=== PATIENT | female | born 2000 | race African-American/Black ===

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

== ENCOUNTER 2019-01-19 14:58 | Emergency (ER) | payer OTHER ==
--- OUTSIDE RECORDS SUMMARY | 2019-01-19 15:06 | XMS REPORT ---
:2000 Author Organization [facility] Care Team Providers Name Role Phone Guera Shah Primary Care Physician Unavailable Allergies, Adverse Reactions, Alerts Allergy Code CodeSystem Reaction Severity Criticality Status Start Substance Date Moderate Medications Medication Medication Medication Start Stop Route Dose Status Fill Code CodeSystem Date Date Instructions prazosin 462570 RxNorm 2019- oral 1 mg 1 completed 1 capsule 24 capsule at bedtime at for 30 day(s) bedtime hydroxyzine 380637 RxNorm 2019- oral 25 mg 1 completed Take 1 tablet HCl 07-0428 tablet four times a four day as needed times a for 30 day(s) day fluoxetine 130120 RxNorm 2019- oral 20 mg 1 completed Take 1 07-04-29 capsule capsule every every morning morning for 7 day(s) fluoxetine 944470 RxNorm 2019- oral 20 mg 2 active 2 capsule 07-18-10 capsule every morning every for 30 morning day(s) fluoxetine 293597 RxNorm 2019- oral 40 mg completed for 30 07-04-29 capsule day(s) buspirone 889374 RxNorm 2019- oral 10 mg completed for 30 08-30 08-24 tablet day(s) clonidine HCl 490254 RxNorm 2019- oral 0.1 mg 1 active Take 1 tablet 10-01-25 tablet four times a four day for 30 times a day(s) day fluoxetine 929908 RxNorm 2019- oral 20 mg 1 completed Take 1 07-04-05 capsule capsule every every morning morning for 7 day(s) alprazolam 478075 RxNorm 2019- oral 0.25 mg completed for 30 08-30 08-24 tablet day(s) fluoxetine 676095 RxNorm 2019- oral 40 mg completed for 30 07-04-12 capsule day(s) Problems Problem Name Code CodeSystem Alternate Alternate Start End Status Narrative Code CodeSystem Date Date 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, unspecified Depressive 62280598 SNOMED-CT Active episode, 4-05 unspecified Panic 69057243 SNOMED-CT Active disorder 7-25 Unspecified 57368252 SNOMED-CT Active anxiety 5-30 disorder Relevant diagnostic tests/laboratory data Narrative No Information Procedures Procedure Code CodeSystem Target Date of Status Service Device Device Device Name Site Procedure Delivery Code Name UID Location Psychotherap [id number] SNOMED-CT () 2018-05-25 complete Mental y, 43 04 d Health- minutes with [place] patient [address], [id number] [phone] Psychotherap [id number] SNOMED-CT () 2018-12-20 complete Mental y, 45 04 d Health- minutes with [place] patient [address], [id number] [phone] Psychotherap [id number] SNOMED-CT () 2018-11-20 complete Mental y, 45 04 d Health- minutes with [place] patient [address], [id number] [phone] Psychotherap [id number] SNOMED-CT () 2018-09-03 complete Mental y, 43 04 d Health- minutes with [place] patient [address], [id number] [phone] Office or 038707 SNOMED-CT () 2018-08-30 complete Mental other 7 d Health- outpatient [place] visit for [address] established [id number] patient, [phone] which requires at least 2 of these 3 live components: An expanded problem focused history; An expanded problem focused examination; Medical decision making of low Office or 380165 SNOMED-CT () 2018-10-01 complete Mental other 7 d Health- outpatient [place] visit for [address], established [id number] patient, [phone] which requires at least 2 of these 3 live components: An expanded problem focused history; An expanded problem focused examination; Medical decision making of low Office or 910907 SNOMED-CT () 2018-10-29 complete Mental other 7 d Health- outpatient [place] visit for [address], established [id number] patient, [phone] which requires at least 2 of these 3 live components: An expanded problem focused history; An expanded problem focused examination; Medical decision making of low Office or 282702 SNOMED-CT () 2018-12-06 complete Mental other 7 d Health- outpatient [place] visit for [address], established [id number] patient, [phone] which requires at least 2 of these 3 live components: An expanded problem focused history; An expanded problem focused examination; Medical decision making of [place] Office or 166133 SNOMED-CT () 2018-07-18 complete Mental other 6 d Health- outpatient [place] visit for [address], established [id number] patient, [phone] which requires at least 2 of these 3 live components: A problem focused history; A problem focused examination; Straightforw david medical decision making. Counselin SNOMED-CT () 2018-12-26 complete Mental d [address], [id number] [phone] SNOMED-CT () 2018-07-04 complete Mental d Health[address], [id number] [phone] Encounters/Encounter Diagnoses Encounter Name Encounter Diagnosis Diagnosis Diagnosis Date of Service Code Code Name CodeSystem Diagnosis Delivery Location Psychotherapy [id number] Panic SNOMED-CT 2018-12-26 Behavioral Individual 30 disorder Health [facility] [address] [place] [address], [phone] Vital Signs No Information Social History Element Description Description Start End Code CodeSystem AdditionalInfo Date Date SexAssignedAtBirth Female F AdministrativeGender 09-02 Hospital Discharge Instructions Reason For Referral Medical Equipment FDA Assessments
--- OUTSIDE RECORDS SUMMARY | 2019-01-19 15:06 | XMS REPORT ---
:2000 Author Name Guera Shah Address [address] [address] Care Team Providers Name Role Phone Guera Shah Unavailable Unavailable Meghana Patino Unavailable Unavailable Allergies, Adverse Reactions, Alerts Allergy Code CodeSystem Reaction Severity Status Substance RxNorm Medications Medication Medication Medication Start Route Dose Status Fill Code CodeSystem Date Instructions RxNorm NoCurrentDosage No NoCurrentFrequency Longer Active fluoxetine RxNorm 2019-0 oral 20 mg 1 capsule No Take 1 5-29 every morning Longer capsule Active every morning for 7 day(s) fluoxetine RxNorm 2019-0 oral 40 mg capsule No for 30 5-29 Longer day(s) Active hydroxyzine RxNorm 2019-0 oral 25 mg 1 tablet No Take 1 tablet HCl 5-29 four times a day Longer four times a Active day as needed for 30 day(s) fluoxetine RxNorm 2019-0 oral 40 mg capsule No for 30 5-29 Longer day(s) Active fluoxetine RxNorm 2019-0 oral 20 mg 1 capsule No Take 1 5-29 every morning Longer capsule Active every morning for 7 day(s) fluoxetine RxNorm 2019-0 oral 20 mg 2 capsule Active 2 capsule 6-12 every morning every morning for 30 day(s) prazosin RxNorm oral 1 mg 1 capsule at No 1 capsule bedtime Longer at bedtime Active for 30 day(s) alprazolam RxNorm 2019-0 oral 0.25 mg tablet No for 30 7-25 Longer day(s) Active buspirone RxNorm 2019-0 oral 10 mg tablet No for 30 7-25 Longer day(s) Active clonidine RxNorm 2019-0 oral 0.1 mg 1 tablet Active Take 1 tablet HCl 8-26 four times a day four times a day for 30 day(s) Hospital Discharge Medications Medication Direction Start Date Status Indications Fill Instuctions No Discharge Medication Problems Problem Name Code CodeSystem Start Date End Date Status SNOMED-CT 2018-04-27 Active SNOMED-CT 2018-05-11 Active SNOMED-CT 2018-07-05 Active SNOMED-CT 2018-08-30 Active Laboratory Values/Results Test Test Code Code System Actual Result Date LOINC Procedures Procedure Name Code CodeSystem Target Site Date of Procedure SNOMED-CT () 2018-05-25 SNOMED-CT () 2018-07-04 SNOMED-CT () 2018-07-18 SNOMED-CT () 2018-09-03 SNOMED-CT () 2018-08-30 SNOMED-CT () 2018-10-01 SNOMED-CT () 2018-10-29 Encounter Diagnosis Code CodeSystem Description Date Finding Finding Code Status 14768 CPT Established 2018-10-08 - SNOMED-CT Active patient 15-29 3 minutes Vital Signs Vitals Date Value Immunizations Vaccine Name Vaccine Code CodeSystem Date Status Social History Element Description Start Date End Date Code CodeSystem Description SNOMED-CT Hospital Discharge Instructions Reason For Referral
--- OUTSIDE RECORDS SUMMARY | 2019-01-19 15:06 | XMS REPORT ---
:2000 Author Organization [facility] Care Team Providers Name Role Phone Guera Shah Primary Care Physician Unavailable Allergies, Adverse Reactions, Alerts Allergy Code CodeSystem Reaction Severity Criticality Status Start Substance Date Moderate Medications Medication Medication Medication Start Stop Route Dose Status Fill Code CodeSystem Date Date Instructions clonidine HCl 674498 RxNorm 2019- oral 0.1 mg 1 active Take 1 tablet 10-01- tablet four times a four day for 30 times a day(s) day hydroxyzine 507682 RxNorm 2019- oral 25 mg 1 completed Take 1 tablet HCl 07-04- tablet four times a four day as needed times a for 30 day(s) day fluoxetine 120542 RxNorm 2019- oral 40 mg completed for 30 07-04-29 capsule day(s) fluoxetine 809705 RxNorm 2019- oral 20 mg 1 completed Take 1 07-04 06-05 capsule capsule every every morning morning for 7 day(s) prazosin 723503 RxNorm 2019- oral 1 mg 1 completed 1 capsule -24 capsule at bedtime at for 30 day(s) bedtime fluoxetine 013475 RxNorm 2019- oral 20 mg 1 completed Take 1 07-04-29 capsule capsule every every morning morning for 7 day(s) alprazolam 447474 RxNorm 2019- oral 0.25 mg completed for 30 08-30 08-24 tablet day(s) buspirone 106362 RxNorm 2019- oral 10 mg completed for 30 - 08-24 tablet day(s) fluoxetine 304825 RxNorm 2019- oral 20 mg 2 active 2 capsule 07-18-10 capsule every morning every for 30 morning day(s) fluoxetine 092690 RxNorm 2019- oral 40 mg completed for 30 07-04-12 capsule day(s) Problems Problem Name Code CodeSystem Alternate Alternate Start End Status Narrative Code CodeSystem Date Date Unspecified 44971199 SNOMED-CT Active anxiety 5-30 disorder Panic 20017345 SNOMED-CT Active disorder 7-25 Depressive 21369351 SNOMED-CT Active episode, 4-05 unspecified Post-traumat 94148439 SNOMED-CT Active ic stress 3-22 disorder, unspecified Relevant diagnostic tests/laboratory data Narrative No Information Procedures Procedure Code CodeSystem Target Date of Status Service Device Device Device Name Site Procedure Delivery Code Name UID Location Psychotherap 018320 SNOMED-CT () 2018-11-20 complete Mental y, 45 04 d Health- minutes with [place] patient [address], [phone] Psychotherap [id number] SNOMED-CT () 2018-09-03 complete Mental y, 45 04 d Health- minutes with [place] patient [address], [phone] Psychotherap 183157 SNOMED-CT () 2018-05-25 complete Mental y, 43 04 d Health- minutes with [place] patient [address], [phone] Office or [id number] SNOMED-CT () 2018-08-30 complete Mental other 7 d Health- outpatient [place] visit for [address] [id number] patient, [phone] which requires at least 2 of these 3 live components: An expanded problem focused history; An expanded problem focused examination; Medical decision making of low Office or 064955 SNOMED-CT () 2018-10-01 complete Mental other 7 d Health- outpatient [place] visit for [address] [phone] patient, [phone] which requires at least 2 of these 3 live components: An expanded problem focused history; An expanded problem focused examination; Medical decision making of low Office or 650138 SNOMED-CT () 2018-10-29 complete Mental other 7 d Health- outpatient [place] visit for [address], established [id number] patient, [phone] which requires at least 2 of these 3 live components: An expanded problem focused history; An expanded problem focused examination; Medical decision making of [facility] Office or 932898 SNOMED-CT () 2018-12-06 complete Mental other 7 d Health- outpatient [place] visit for [address], established [id number] patient, [phone] which requires at least 2 of these 3 live components: An expanded problem focused history; An expanded problem focused examination; Medical decision making of [facility] Office or 193304 SNOMED-CT () 2018-07-18 complete Mental other 6 d Health- outpatient [place] visit for [address], [facility] [phone] patient, [phone] which requires at least 2 of these 3 live components: A problem focused history; A problem focused examination; Straightforw david medical decision making. Counselin SNOMED-CT () 2018-07-04 complete Mental d Health- [place] [address], [phone] Encounters/Encounter Diagnoses Encounter Name Encounter Diagnosis Diagnosis Diagnosis Date of Service Code Code Name CodeSystem Diagnosis Delivery Location Psychotherapy 86872 [id number] Panic SNOMED-CT 2018-12-20 Behavioral Individual 30 disorder Health [facility] , , , Vital Signs No Information Social History Element Description Description Start End Code CodeSystem AdditionalInfo Date Date SexAssignedAtBirth Female 2000- F AdministrativeGender 09-02 Hospital Discharge Instructions Reason For Referral Medical Equipment FDA Assessments
--- OUTSIDE RECORDS SUMMARY | 2019-01-19 15:06 | XMS REPORT ---
:2000 Author Organization [facility] Care Team Providers Name Role Phone Guera Shah Primary Care Physician Unavailable Allergies, Adverse Reactions, Alerts Allergy Code CodeSystem Reaction Severity Criticality Status Start Substance Date Moderate Medications Medication Medication Medication Start Stop Route Dose Status Fill Code CodeSystem Date Date Instructions alprazolam 556558 RxNorm 2019- oral 0.25 mg completed for 30 08-30-24 tablet day(s) fluoxetine 642180 RxNorm 2019- oral 20 mg 1 completed Take 1 07-04- capsule capsule every every morning morning for 7 day(s) fluoxetine 661005 RxNorm 2019- oral 20 mg 1 completed Take 1 07-04 06-05 capsule capsule every every morning morning for 7 day(s) buspirone 139383 RxNorm 2019- oral 10 mg completed for 30 08-30 08-24 tablet day(s) clonidine HCl 526995 RxNorm 2019- oral 0.1 mg 1 active Take 1 tablet 10-01-25 tablet four times a four day for 30 times a day(s) day hydroxyzine 139249 RxNorm 2019- oral 25 mg 1 completed Take 1 tablet HCl 07-04-28 tablet four times a four day as needed times a for 30 day(s) day prazosin 936942 RxNorm 2019- oral 1 mg 1 completed 1 capsule -24 capsule at bedtime at for 30 day(s) bedtime fluoxetine 620529 RxNorm 2019- oral 40 mg completed for 30 07-04 06-12 capsule day(s) fluoxetine 415937 RxNorm 2019- oral 20 mg 2 active 2 capsule 07-18 09-10 capsule every morning every for 30 morning day(s) fluoxetine 077788 RxNorm 2019- oral 40 mg completed for 30 07-04-29 capsule day(s) Problems Problem Name Code CodeSystem Alternate Alternate Start End Status Narrative Code CodeSystem Date Date Unspecified [id number] SNOMED-CT Active anxiety 5-30 disorder Panic [id number] SNOMED-CT Active disorder 7-25 Depressive [id number] SNOMED-CT Active episode, 4-05 unspecified Post-traumat [id number] SNOMED-CT Active ic stress 3-22 disorder, unspecified Relevant diagnostic tests/laboratory data Narrative No Information Procedures Procedure Code CodeSystem Target Date of Status Service Device Device Device Name Site Procedure Delivery Code Name UID Location Psychotherap [id number] SNOMED-CT () 2018-11-20 complete Mental y, 45 04 d Health- minutes with [facility] patient [address], [id number] Psychotherap [id number] SNOMED-CT () 2018-09-03 complete Mental y, 45 04 d Health- minutes with [facility] patient [address], [id number] Psychotherap [id number] SNOMED-CT () 2018-05-25 complete Mental y, 45 04 d Health- minutes with [facility] patient [address], [id number] Psychotherap [id number] SNOMED-CT () 2018-12-20 complete Mental y, 45 04 d Health- minutes with [facility] patient [address], [id number] Office or [id number] SNOMED-CT () 2018-08-30 complete Mental other 7 d Health- outpatient [facility] visit for [address] established [id number] patient, [id number] which requires at least 2 of these 3 live components: An expanded problem focused history; An expanded problem focused examination; Medical decision making of low Office or [id number] SNOMED-CT () 2018-10-01 complete Mental other 7 d Health- outpatient [facility] visit for [address], established [id number] patient, [id number] which requires at least 2 of these 3 live components: An expanded problem focused history; An expanded problem focused examination; Medical decision making of low Office or [id number] SNOMED-CT () 2018-10-29 complete Mental other 7 d Health- outpatient [facility] visit for [address], established [id number] patient, [id number] which requires at least 2 of these 3 live components: An expanded problem focused history; An expanded problem focused examination; Medical decision making of low Office or [id number] SNOMED-CT () 2018-12-06 complete Mental other 7 d Health- outpatient [facility] visit for [address], established [id number] patient, [id number] which requires at least 2 of these 3 live components: An expanded problem focused history; An expanded problem focused examination; Medical decision making of low Office or [id number] SNOMED-CT () 2018-07-18 complete Mental other 6 d Health- outpatient [facility] visit for [address], established [id number] patient, [id number] which requires at least 2 of these 3 live components: A problem focused history; A problem focused examination; Straightforw david medical decision making. Counselin SNOMED-CT () 2018-07-04 complete Mental d Health- [facility] [address], [id number] [id number] Encounters/Encounter Diagnoses Encounter Name Encounter Diagnosis Diagnosis Diagnosis Date of Service Code Code Name CodeSystem Diagnosis Delivery Location Psychotherapy - [id number] Panic SNOMED-CT 2018-12-26 Behavioral Individual 30 disorder [facility] , , , Vital Signs No Information Social History Element Description Description Start End Code CodeSystem AdditionalInfo Date Date SexAssignedAtBirth Female F AdministrativeGender 09-02 Hospital Discharge Instructions Reason For Referral Medical Equipment FDA Assessments
[2019-01-19] MEDS ORDERED: Ibuprofen TAB* 400 MG PO ONE (15:21)
--- NOTE | 2019-01-19 15:26 | UC ---
Respiratory Complaint HPI - HPI Summary HPI Summary: patient has had sinus congestion for a few days, for past 2 days she has had pain with breathing, hurts to take deep breath, denies SOB or wheezing no cough, no weakness or dizziness, no calf pain tried only Tylenol for pain with little relief - History of Current Complaint Chief Complaint: UCChestPain Stated Complaint: CHEST PAIN Time Seen by Provider: 01/19/19 15:04 Hx Obtained From: Patient Hx Last Menstrual Period: 1 week ago ?: No Onset/Duration: Gradual Onset Timing: Constant Severity Initially: Mild Severity Currently: Moderate Pain Intensity: 6 Aggravating Factors: Deep Breaths, Recumbent Position Alleviating Factors: Spontaneous Resolution Associated Signs And Symptoms: Positive: Nasal Congestion, Sinus Discomfort. Negative: Dyspnea, Fever, Chills, Wheezing, Hemoptysis, Dizziness, Calf Pain, Calf Swelling - Allergies/Home Medications Allergies/Adverse Reactions: Allergies Allergy/AdvReac Type Severity Reaction Status Date / Time No Known Allergies Allergy Verified 01/19/19 15:14 Home Medications: Home Medications FLUoxetine CAP* [Prozac CAP*] 40 mg PO DAILY 01/19/19 [History Confirmed ] busPIRone TAB* [Buspar TAB*] 01/19/19 [History] cloNIDine TAB* [Catapres 0.1 MG TAB*] 01/19/19 [History] PMH/Surg Hx/FS Hx/Imm Hx Previously Healthy: Yes Psychological History: Anxiety, Depression - Surgical History Surgical History: Yes Surgery Procedure, Year, and Place: Cholecystectomy. tonsillectomy - Family History Known Family History: Positive: Cardiac Disease, Hypertension, Diabetes Family History: Not much is known about the paternal side. He has alcohol and drug problems. Her mother had cervical cancer. Her maternal grandmother had ovarian cancer, drug abuse, and thyroid disease. - Social History Occupation: Unemployed Lives: With Family Alcohol Use: None Substance Use Type: None Substance Use Comment - Amount & Last Used: 3-4 days ago per pt Smoking Status (MU): Current Every Day Smoker Amount Used/How Often: "rolled" cigarettes Cessation Counseling: Patient Advised to Stop - Immunization History Most Recent Influenza Vaccination: november 2017 Most Recent Pneumonia Vaccination: n/a Vaccination Up to Date: Yes Review of Systems All Other Systems Reviewed And Are Negative: Yes Constitutional: Positive: Negative Skin: Positive: Negative. Negative: Rash Respiratory: Negative: Shortness Of Breath, Cough Cardiovascular: Positive: Chest Pain - sharp in nature Gastrointestinal: Positive: Negative. Negative: Abdominal Pain Musculoskeletal: Positive: Negative Neurological: Positive: Negative. Negative: Headache, Weakness Psychological: Positive: Negative Is Patient Immunocompromised?: No Physical Exam Triage Information Reviewed: Yes Appearance: Well-Appearing, No Pain Distress, Well-Nourished Vital Signs: Initial Vital Signs Temp 97.3 F 01/19/19 15:10 Pulse 62 01/19/19 15:10 Resp 6 01/19/19 15:10 BP 121/68 01/19/19 15:10 Pulse Ox 98 01/19/19 15:10 Vital Signs Reviewed: Yes Eye Exam: Normal Eyes: Positive: Conjunctiva Clear ENT Exam: Normal ENT: Positive: Pharynx normal, Nasal congestion, TMs normal, Sinus tenderness. Negative: Tonsillar swelling, Tonsillar exudate Neck exam: Normal Neck: Positive: Supple, Nontender, No Lymphadenopathy Respiratory Exam: Normal Respiratory: Positive: Chest non-tender, Lungs clear Cardiovascular Exam: Normal Cardiovascular: Positive: RRR, Brisk Capillary Refill Musculoskeletal Exam: Normal Neurological Exam: Normal Neurological: Positive: Alert Psychological Exam: Normal Skin Exam: Normal Diagnostics - Radiology No standard instances Radiology Interpretation Completed By: Radiologist - normal CXR Re-Evaluation - Re-Evaluation First Eval Re-Evaluation Time: 16:00 Change: Unchanged - continues to rest quietly, denies c/o at this time Respiratory Course/Dx - Differential Dx/Diagnosis Differential Diagnosis/HQI/PQRI: Asthma, Bronchitis, Influenza, Lower Resp Infection, Pulmonary Embolism, Sinusitis Provider Diagnosis: Upper respiratory infection Discharge ED - Sign-Out/Discharge Documenting (check all that apply): Patient Departure All imaging exams completed and their final reports reviewed: Yes - Discharge Plan Condition: Good Disposition: HOME Prescriptions: Azithromyxin FRANKIE (NF) [Z-Frankie (Zithromax) 250 mg tabs #6] 2 tab PO .TODAY, THEN 1 DAILY #6 tab Patient Education Materials: Upper Respiratory Infection (ED) Referrals: Arian Link [facility] [Primary Care Provider] - 3 Days (if no better) Additional Instructions: drink plenty of fluids and rest use Tylenol as directed for pain or fever use zithromax as prescribed - Billing Disposition and Condition Condition: GOOD Disposition: Home - Attestation Statements Provider Attestation: Per institutional requirements, I have reviewed the chart, however, I was not consulted specifically or made aware of this patient by the midlevel provider. I did not personally evaluate, interact with , or disposition this patient.
[2019-01-19 16:27] VITALS: BP 122/54
== END 2019-01-19 16:22 | disposition home or self-care (01) ==
LOC: UCEAST 14:58
DX: J06.9 Acute upper respiratory infection, unspecified (principal); F41.9 Anxiety disorder, unspecified; F32.9 Major depressive disorder, single episode, unspecified; F17.210 Nicotine dependence, cigarettes, uncomplicated
CPT/HCPCS: 71046; 93005; 99212; A9270-GY; G0463

== ENCOUNTER 2020-07-07 12:56 | Inpatient (IN) ==
[2020-07-07] MEDS ORDERED: Buffered Lidocaine 1% SYRIN 1 ml INTRADERM ONE (13:23)
[2020-07-07] MEDS ORDERED: Lactated Ringers 1000 ml BAG 1,000 ML IV ONE (13:23)
[2020-07-07] MEDS ORDERED: Lactated Ringers 1000 ml BAG 1,000 ML IV SCH (14:00)
[2020-07-07 14:25] LABS: Urine Benzodiazepine Screen None Detected (None Detect); Urine Cannabinoids Screen Presumptive Positive (None Detect); Urine Opiates Screen None Detected (None Detect)
[2020-07-07 15:16] LABS: ABS Eosinophils 0.1 10^3/ul (0-0.6); ABS Lymphocytes 2.5 10^3/ul (1.0-4.8); Eosinophil % 0.6 %; Hematocrit 35 % (35-47); Hemoglobin 11.4 g/dL (12.0-16.0); Lymphocyte % 18.6 %; Mean Corpuscular HGB Conc 33 g/dL (31-36); Mean Corpuscular Hemoglobin 28 pg (27-31); Mean Corpuscular Volume 84 fL (80-97); Mean Platelet Volume 9.8 fL (7.4-10.4); Platelet Count 211 10^3/uL (150-450); Red Cell Distribution Width 14 % (10-15); White Blood Count 13.6 10^3/uL (3.5-10.8)
[2020-07-07 16:34] LABS: Albumin 3.6 g/dL (3.2-5.2); Calcium 8.9 mg/dL (8.6-10.3); EGFR African American 180.1 (>60); EGFR Non-African American 148.9 (>60); Globulin 3.5 g/dL (2-4); Potassium 3.9 mmol/L (3.5-5.0); Total Bilirubin 0.5 mg/dL (0.2-1.0); Total Protein 7.1 g/dL (6.4-8.9); Uric Acid 4.5 mg/dL (2.3-6.6)
[2020-07-07] MEDS ORDERED: Oxytocin in LR 20 UNITS/1,000 ML BAG IVPB SCH (23:00)
[2020-07-08] MEDS ORDERED: OBEPIDURAL 250 ML EPIDURAL ONE (02:51)
[2020-07-08] MEDS ORDERED: Lactated Ringers 1000 ml BAG 1,000 ML IV ONE (03:00)
[2020-07-08] MEDS ORDERED: Sodium Citrate/Citric Acid LIQ 15 ML UDC PO PRN (03:00)
[2020-07-08] MEDS ORDERED: Phenylephrine 40 mcg/mL 10mL (400mcg) SYRINGE IV PUSH PRN ×2 (03:00)
[2020-07-08] MEDS ORDERED: Lactated Ringers 1000 ml BAG 1,000 ML IV SCH ×2 (03:00→09:00)
[2020-07-08] MEDS ORDERED: OBEPIDURAL 250 ML EPIDURAL SCH (03:00)
[2020-07-08] MEDS ORDERED: Bupivacaine 0.25% SDV PF 10 ML VIAL INJ ONE ×3 (03:30→07:34)
[2020-07-08] MEDS ORDERED: fentaNYL 100 mcg/2 ml 50 MCG/ML VIAL ONE (07:35)
[2020-07-08] MEDS ORDERED: Witch Hazel PAD JAR TOPICAL PRN (08:51)
[2020-07-08] MEDS ORDERED: Dibucaine 1% OINT 28.35 GM TUBE PR PRN (08:51)
[2020-07-08] MEDS ORDERED: Oxytocin in LR 20 UNITS/1,000 ML BAG IVPB SCH (09:00)
[2020-07-09 06:53] LABS: ABS Eosinophils 0.1 10^3/ul (0-0.6); ABS Lymphocytes 3.1 10^3/ul (1.0-4.8); ABS Monocytes 1.1 10^3/ul (0-0.8); ABS Neutrophils 10.2 10^3/ul (1.5-7.7); Hematocrit 29 % (35-47); Hemoglobin 9.6 g/dL (12.0-16.0); Lymphocyte % 21.3 %; Mean Corpuscular HGB Conc 34 g/dL (31-36); Mean Corpuscular Hemoglobin 28 pg (27-31); Mean Corpuscular Volume 84 fL (80-97); Mean Platelet Volume 9.5 fL (7.4-10.4); Platelet Count 172 10^3/uL (150-450); Red Blood Count 3.39 10^6 /uL (3.70-4.87); Red Cell Distribution Width 15 % (10-15); White Blood Count 14.5 10^3/uL (3.5-10.8)
[2020-07-09 08:15] VITALS: BP 134/74
== END 2020-07-09 13:23 | disposition home or self-care (01) | DRG 560 ==
LOC: MCHOBOUT 12:56 → MCHOB 13:21
PROVIDERS: ADMIT Midwife; ATTEND Midwife

== ENCOUNTER 2022-07-15 08:02 | Observation (INO) ==
[2022-07-15] MEDS ORDERED: Lactated Ringers 1000 ml BAG 1,000 ML IV ONE (08:53)
[2022-07-15] MEDS ORDERED: Promethazine INJ(RESTRICTED) 25 MG/ML 1 ml VIAL IV PRN (08:53)
[2022-07-15] MEDS ORDERED: Buffered Lidocaine 1% SYRIN 1 ml INTRADERM ONE (08:53)
[2022-07-15 09:00] VITALS: BP 129/68
[2022-07-15] MEDS ORDERED: Lactated Ringers 1000 ml BAG 1,000 ML IV SCH (09:00)
[2022-07-15 09:24] LABS: Urine Appearance Cloudy; Urine Bilirubin Negative (Negative); Urine Blood Negative (Negative); Urine Color Amber; Urine Glucose Negative (Negative); Urine Ketones Trace (Negative); Urine Nitrite Negative (Negative); Urine Protein 1+(30 mg/dL) (Negative); Urine Urobilinogen Positive (Negative)
[2022-07-15 09:28] LABS: Urine Bacteria Absent (Absent); Urine Red Blood Cell Absent (Absent); Urine Squamous Epithelial Cell Present (Absent); Urine White Blood Cell Trace(0-5/hpf) (Absent)
[2022-07-15] MEDS: miSOPROStol 100 mcg TAB PO SCH ×2 (09:40→14:51)
[2022-07-15 10:39] LABS: ABS Basophils 0.1 10^3/uL (0.0-0.1); ABS Eosinophils 0.2 10^3/uL (0.0-0.5); ABS Lymphocytes 2.5 10^3/uL (1.0-4.8); ABS Monocytes 0.8 10^3/uL (0.0-0.9); ABS Neutrophils 11.1 10^3/uL (1.5-7.6); Eosinophil % 1.2 %; Hematocrit 34.7 % (35-45); Hemoglobin 11.7 g/dL (11.5-14.3); Lymphocyte % 17.4 %; Mean Corpuscular Hemoglobin 28.1 pg (27-33); Mean Corpuscular Hgb Conc 33.6 g/dL (31-36); Mean Corpuscular Volume 83.5 fL (80-97); Mean Platelet Volume 9.1 fL (7.5-11.2); Platelet Count 253 10^3/uL (150-450); Red Blood Count 4.15 10^6/uL (3.63-4.92); Red Cell Distribution Width 14.5 % (12-17); White Blood Count 14.6 10^3/uL (3.8-11.8)
== END 2022-07-15 20:02 | disposition home or self-care (01) ==
LOC: MCHOBOUT 08:02 → MCHOB 08:57 → INTOOBSV 08:57
PROVIDERS: ADMIT Registered Nurse; ATTEND Registered Nurse

== ENCOUNTER 2022-07-17 05:07 | Inpatient (IN) ==
[2022-07-17] MEDS ORDERED: Buffered Lidocaine 1% SYRIN 1 ml INTRADERM ONE (06:33)
[2022-07-17] MEDS ORDERED: Lactated Ringers 1000 ml BAG 1,000 ML IV ONE (06:33)
[2022-07-17] MEDS ORDERED: Oxytocin in LR 20,000 MILLI.UNIT/1,000 ML BAG IV SCH ×2 (06:45→17:30)
[2022-07-17 07:59] LABS: ABS Basophils 0.1 10^3/uL (0.0-0.1); ABS Eosinophils 0.3 10^3/uL (0.0-0.5); ABS Lymphocytes 2.9 10^3/uL (1.0-4.8); ABS Monocytes 1.1 10^3/uL (0.0-0.9); ABS Neutrophils 13.1 10^3/uL (1.5-7.6); ABS Nucleated RBC 0.01 10^3/ul; Eosinophil % 1.9 %; Hematocrit 35.8 % (35-45); Hemoglobin 11.8 g/dL (11.5-14.3); Lymphocyte % 16.4 %; Mean Corpuscular Volume 84.8 fL (80-97); Mean Platelet Volume 8.9 fL (7.5-11.2); Nucleated Red Blood Cells % 0.1 /100 WBC (0.0-0.4); Platelet Count 259 10^3/uL (150-450); Red Blood Count 4.23 10^6/uL (3.63-4.92); Red Cell Distribution Width 14.2 % (12-17); White Blood Count 17.4 10^3/uL (3.8-11.8)
[2022-07-17] MEDS: Lactated Ringers 1000 ml BAG 1,000 ML IV SCH ×2 (08:00→17:57)
[2022-07-17 08:21] LABS: Urine Benzodiazepine Screen None Detected (None Detect); Urine Cannabinoids Screen Presumptive Positive (None Detect); Urine Opiates Screen None Detected (None Detect)
[2022-07-17] MEDS ORDERED: fentaNYL 100 mcg/2 ml 50 MCG/ML VIAL IV SLOW PU PRN (16:55)
[2022-07-17] MEDS ORDERED: Witch Hazel PAD JAR TOPICAL PRN (17:23)
[2022-07-17] MEDS ORDERED: Glycerin ADULT 2.4 gm SUPP PR PRN (17:23)
[2022-07-17] MEDS ORDERED: Dibucaine 1% OINT 28.35 GM TUBE PR PRN (17:23)
[2022-07-17] MEDS ORDERED: Lactated Ringers 1000 ml BAG 1,000 ML IV SCH (18:00)
[2022-07-17] MEDS ORDERED: Ondansetron 4 mg VIAL 2 MG/ML 2 ml VIAL IV PRN (19:31)
[2022-07-18 09:55] LABS: Hematocrit 31.7 % (35-45); Hemoglobin 10.6 g/dL (11.5-14.3); Mean Corpuscular Hemoglobin 27.8 pg (27-33); Mean Corpuscular Hgb Conc 33.5 g/dL (31-36); Mean Corpuscular Volume 82.9 fL (80-97); Red Blood Count 3.82 10^6/uL (3.63-4.92); Red Cell Distribution Width 14.4 % (12-17); White Blood Count 18.6 10^3/uL (3.8-11.8)
[2022-07-18 09:56] LABS: ABS Basophils 0.1 10^3/uL (0.0-0.1); ABS Eosinophils 0.1 10^3/uL (0.0-0.5); ABS Lymphocytes 2.7 10^3/uL (1.0-4.8); ABS Neutrophils 14.6 10^3/uL (1.5-7.6); ABS Nucleated RBC 0.01 10^3/ul; Eosinophil % 0.7 %; Lymphocyte % 14.4 %; Mean Platelet Volume 8.5 fL (7.5-11.2); Platelet Count 241 10^3/uL (150-450)
[2022-07-18 16:00] VITALS: BP 125/72
== END 2022-07-18 17:45 | disposition home or self-care (01) | DRG 560 ==
LOC: MCHOBOUT 05:07 → MCHOB 06:42
PROVIDERS: ADMIT Midwife; ATTEND Obstetrics & Gynecology